=== PATIENT | male | born 1960 | race Caucasian/White ===

== ENCOUNTER → 2016-10-31 | Outpatient (CLI) | payer OTHER ==
--- NOTE | 2016-10-31 09:53 | DIAGNOSTIC IMAGING REPORT ---
LEFT WRIST 3 VIEWS CLINICAL HISTORY: Left wrist pain. FINDINGS: 3 views of left wrist are compared to study dated 11/14/2014. The skeletal structures are well mineralized. No fracture is seen. Cystic degenerative change is present in the distal ulna. 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 Mild subchondral cyst formation is noted in the lunate. Degenerative spurring is seen along the dorsal aspect of the carpal bones. A tiny linear radiodense metallic foreign body is present along the palmar aspect of the distal carpal row. IMPRESSION: 1. No acute bony abnormality is seen in the left wrist. 2. Arthritic change as above, greatest at the radiocarpal articulation. 3. A small metallic foreign body is present in the palmar aspect of the wrist. Electronically signed by: Toney Freitas M.D. 10/31/2016 9:51 AM Dictated Date/Time: 10/31/2016 9:50 AM
== END | disposition home or self-care (01) ==
LOC: C.RDSM 11:53
PROVIDERS: ATTEND Physician Assistant
DX: M25.532 Pain in left wrist (principal)